=== PATIENT | female | born 1955 | race Caucasian/White ===

== ENCOUNTER 2016-08-11 03:36 | Emergency (ER) | payer OTHER ==
[~2016-08-11] VITALS: Ht 157.5 cm; Wt 80.7 kg
[~2016-08-11 03:36] MED LIST: BROM0.07 OPL; MELO15TA4 PO; PRED1SUS3 OPL; PRLSR20 PO; PROP10TA7 PO; SERT50TA PO
[2016-08-11 03:43] VITALS: TEMP 36.9; Ht 157.5 cm; Wt 80.7 kg
[2016-08-11] MEDS ORDERED: SODIUM CHLORIDE 0.9% 1000ML 1,000 ML IV STA (04:02)
[2016-08-11] MEDS ORDERED: ONDANSETRON INJ 2 MG/ML 2 ML VIAL IV STA (04:02)
[2016-08-11] MEDS ORDERED: FAMOTIDINE 20MG/102 ML D5W IV STA (04:02)
[2016-08-11 04:03] VITALS: O2SAT 98
[2016-08-11] MEDS ORDERED: OMEG10007 PO (04:12)
[2016-08-11] MEDS ORDERED: PROP20TA67 PO (04:13)
[2016-08-11] MEDS ORDERED: SERT-234 PO (04:13)
[2016-08-11 04:23] LABS: BASO % 0.1 %; BASO ABS # 0.01 K/uL (0-0.2); COMPLETE YES; EOS % 1.6 %; HEMATOCRIT 42.6 % (37-47); IG% 0.4 %; LYMPH % 20.3 %; LYMPH ABS # 1.54 K/uL (1.2-3.4); MEAN CELL VOLUME 88.6 fL (80-100); MEAN CORPUSCULAR HEMOGLOBIN 28.3 pg (25-34); MEAN CORPUSCULAR HGB CONC 31.9 g/dl (32-36); MEAN PLATELET VOLUME 10.1 fL (7.4-10.4); MONO % 10.3 %; NEUT % 67.3 %; PLATELET COUNT 209 K/uL (130-400); RED BLOOD COUNT 4.81 M/uL (4.2-5.4)
[2016-08-11 04:42] LABS: BLOOD UREA NITROGEN 12 mg/dl (7-18); BUN/CREATININE RATIO 19.3 (10-20); CALCIUM 8.6 mg/dl (8.5-10.1); CARBON DIOXIDE 28 mmol/L (21-32); CHLORIDE 108 mmol/L (98-107); GLUCOSE 102 mg/dl (70-99); POTASSIUM 3.3 mmol/L (3.5-5.1); SODIUM 142 mmol/L (136-145)
[2016-08-11] MEDS ORDERED: POTASSIUM CHLORIDE 10 MEQ TABCR PO STA (04:44)
[2016-08-11] MEDS ORDERED: ONDANSETRON HOME PACK 4MG OD TAB PO ONE (04:45)
[2016-08-11 05:12] VITALS: BP 158/85; PULSE 65; O2SAT 98
--- NOTE | 2016-08-11 05:27 | EMERGENCY ROOM VISIT NOTE ---
History First contact with patient: 03:56 Chief Complaint: VOMITING Stated Complaint: CAN'T KEEP NOTHING IN ME Nursing Triage Summary: N/V/D since Sunday. Pt states she is unable to keep anything down. History of Present Illness The patient is a 61 year old female who presents to the Emergency Room with complaints of nausea, vomiting, diarrhea, fatigue for the past few days. Patient denies recent antibiotics or well water. Patient denies chest pain, dyspnea, fever, chills, cough, congestion, urinary symptoms, sore throat, headache, neck stiffness, back pain. Patient complains of abdominal bloating and cramping without localized pain. Other people at work have been sick. Review of Systems See HPI for pertinent positives & negatives. A total of 10 systems reviewed and were otherwise negative. Past Medical/Surgical History Hypertension, anxiety, depression Social History Smoking Status: Never Smoker Drug Use: none Marital Status: Housing Status: lives with family Occupation Status: employed Current/Historical Medications Scheduled Fish Oil (Sanford-3), 1 CAP PO DAILY Omeprazole (Prilosec), 20 MG PO QAM Propranolol (Inderal), 20 MG PO BID Sertraline (Zoloft), 100 MG PO DAILY Allergies Coded Allergies: No Known Allergies (Unverified , 08/11/16) Physical Exam Vital Signs Date Time Temp Pulse Resp B/P Pulse Ox O2 Delivery O2 Flow Rate FiO2 08/11/16 05:12 65 18 158/85 98 Room Air 08/11/16 04:21 68 08/11/16 04:03 98 Room Air 08/11/16 03:43 36.9 88 20 138/89 96 Room Air Physical Exam VITALS: Vitals are noted on the nurse's note and reviewed by myself. Vital signs stable. GENERAL: Pleasant female, in no acute distress, nondiaphoretic, well-developed well-nourished. SKIN: The skin was without rashes, erythema, edema, or bruising. There is no tenting of the skin. Capillary reflex less than 2 seconds. HEAD: Normocephalic atraumatic. EARS: External auditory canals clear, tympanic membranes pearly key without erythema or effusion bilaterally. EYES: Pupils equal round and reactive to light and accommodation. Conjunctivae without injection, sclerae without icterus. Extraocular movements intact. NOSE: Patent, turbinates without inflammation or discharge. MOUTH: Mucous membranes mildly dry pharynx without erythema or exudate. Uvula midline. Airway patent. Tongue does not deviate. NECK: Supple without nuchal rigidity. No lymphadenopathy. No thyromegaly. Cervical spine is nontender. No JVD. HEART: Regular rate and rhythm without murmurs gallops or rubs. LUNGS: Clear to auscultation bilaterally without wheezes, rales or rhonchi. No dullness to percussion. No retractions or accessory muscle use. ABDOMEN: Positive bowel sounds x 4. Normal tympanic percussion. Soft, nontender, without masses or organomegaly. Erazo sign negative. No guarding or rebound tenderness. MUSCULOSKELETAL: No muscle atrophy, erythema, or edema noted. NEURO: Patient was alert and oriented to person place and time. Normal sensation to light and sharp touch. No focal neurological deficits. Medical Decision & Procedures Laboratory Results 08/11/16 04:10 Red Blood Count 4.81, Mean Corpuscular Volume 88.6, Mean Corpuscular Hemoglobin 28.3, Mean Corpuscular Hemoglobin Concent 31.9, Mean Platelet Volume 10.1, Neutrophils (%) (Auto) 67.3, Lymphocytes (%) (Auto) 20.3, Monocytes (%) (Auto) 10.3, Eosinophils (%) (Auto) 1.6, Basophils (%) (Auto) 0.1, Neutrophils # (Auto ) 5.12, Lymphocytes # (Auto) 1.54, Monocytes # (Auto) 0.78, Eosinophils # (Auto ) 0.12, Basophils # (Auto) 0.01 08/11/16 04:10 Test 08/11/16 04:10 White Blood Count 7.60 K/uL (4.8-10.8) Red Blood Count 4.81 M/uL (4.2-5.4) Hemoglobin 13.6 g/dL (12.0-16.0) Hematocrit 42.6 % (37-47) Mean Corpuscular Volume 88.6 fL (80-100) Mean Corpuscular Hemoglobin 28.3 pg (25-34) Mean Corpuscular Hemoglobin Concent 31.9 g/dl (32-36) Platelet Count 209 K/uL (130-400) Mean Platelet Volume 10.1 fL (7.4-10.4) Neutrophils (%) (Auto) 67.3 % Lymphocytes (%) (Auto) 20.3 % Monocytes (%) (Auto) 10.3 % Eosinophils (%) (Auto) 1.6 % Basophils (%) (Auto) 0.1 % Neutrophils # (Auto) 5.12 K/uL (1.4-6.5) Lymphocytes # (Auto) 1.54 K/uL (1.2-3.4) Monocytes # (Auto) 0.78 K/uL (0.11-0.59) Eosinophils # (Auto) 0.12 K/uL (0-0.5) Basophils # (Auto) 0.01 K/uL (0-0.2) RDW Standard Deviation 42.3 fL (36.4-46.3) RDW Coefficient of Variation 12.9 % (11.5-14.5) Immature Granulocyte % (Auto) 0.4 % Immature Granulocyte # (Auto) 0.03 K/uL (0.00-0.02) Anion Gap 6.0 mmol/L (3-11) Est Creatinine Clear Calc Drug Dose 96.9 ml/min Estimated GFR () 114.0 Estimated GFR (Non- 98.4 BUN/Creatinine Ratio 19.3 (10-20) Calcium Level 8.6 mg/dl (8.5-10.1) Magnesium Level 2.0 mg/dl (1.8-2.4) Troponin I < 0.015 ng/ml (0-0.045) Medications Administered Medications (Trade) Dose Ordered Sig/Etta Route Start Time Stop Time Status Last Admin Dose Admin Ondansetron HCl 4 mg 4 mg NOW STAT IV 08/11/16 04:02 08/11/16 04:04 DC 08/11/16 04:09 4 MG Sodium Chloride (Nss 1000ml) 1,000 ml @ 999 mls/hr Q1H1M STAT IV 08/11/16 04:02 08/11/16 05:02 DC 08/11/16 04:09 999 MLS/HR Famotidine (Pepcid 20mg/100 ml) 20 mg ONE STAT IV 08/11/16 04:02 08/11/16 04:04 DC 08/11/16 04:09 20 MG Potassium Chloride (Klor-Con M10) 20 meq NOW STAT PO 5/12/17 04:44 08/11/16 04:45 DC 08/11/16 05:10 20 MEQ Ondansetron HCl (ZOFRAN ODT 4MG Home Pack) 1 homepack UD ONCE PO 08/11/16 04:45 08/11/16 04:46 DC 08/11/16 05:10 1 HOMEPACK ED Course Prior records/ancillary studies reviewed. Triage Nursing notes reviewed. Additional history obtained from the family. The patient's history was concerning for nausea, vomiting, diarrhea, and abdominal pain. Differential diagnosis: Etiologies such as gastroenteritis, food borne illness, infections, appendicitis , diverticulitis, inflammatory bowel disease, obstruction, GI bleed, biliary pathology, as well as others were entertained. Physical examination findings: As above. Abdominal examination revealed no tenderness. Vital signs reviewed and revealed stable. ER treatment provided: IV hydration 1 L NSS. Zofran, Pepcid On reassessment the patient felt better. Patient was tolerating p.o. intake. Diagnostics interpretation by me: EKG: Normal sinus, normal intervals, no acute ST-T wave changes. Impression normal sinus rhythm interpreted The labs revealed hypokalemia and this is replaced orally This appears to be consistent with vomiting and diarrhea. Patient was neurovascularly and neurologically intact. She did not have an acute abdomen on exam. She is able to tolerate fluids. Patient is advised to do clear liquid diet today and then progress as tolerated to bland diet tomorrow. She is advised to return to the ER immediately for abdominal pain, fevers, vomiting , worsening signs or symptoms or as needed. She is advised follow-up family care in a few days for reevaluation.. By the evaluation outlined above emergent etiologies such as appendicitis, diverticulitis, obstruction, cardiac sources, mesenteric ischemia, aortic pathology, inflammatory bowel disease, renal colic, PUD, biliary pathology, UTI, as well as others were deemed relatively unlikely. The pt informed about the findings as listed above. All questions were answered and pleased with the treatment. Return instructions were outlined and the patient was discharged in stable condition. Outpatient prescription management: zofran Referral: The patient was referred to their primary care physician for follow-up in 2 to 3 days for a recheck of the current condition. case reviewed with my Attending Medical Decision As above Impression Primary Impression: Nausea, vomiting, and diarrhea Departure Information Dispostion Home / Self-Care Condition GOOD Referrals Azeem Hamilton M.D. (PCP) Patient Instructions My [facility] Additional Instructions DO NOT drive, drink alcohol, operate machinery, or perform dangerous activities today. You were given medications in the ER that can affect your ability to safely function or operate a vehicle. Zofran(odansetron) tablets 4mg: Take one and allow it to dissolve in your mouth every four to six hours as needed for nausea or vomiting. Ibuprofen(Motrin, Advil) may be used for fever or pain. Use 600mg every six hours as needed. Take with food. Avoid using more than 2400mg in a 24 hour period. Do not use 2400mg per day for more than three consecutive days without physician direction. Prolonged inappropriate use can lead to stomach upset or ulcers. (AND/OR) Acetaminophen(Tylenol) may be used for fever or pain. Use 1000mg every six hours as needed. Avoid using more than 3000mg in a 24 hour period. Rest and drink plenty of fluids as tolerated. Slow sips of water or sports drinks are recommended instead of large amounts all at once. Continue current medications. Once your stomach is settled start with a clear liquid diet (jello, soup broth, etc.) and then advance as tolerated. You should avoid full, heavy meals for about 24 hrs from the time your symptoms resolved. Return to the ER for persistent vomiting, fevers, abdominal pain, chest pains, difficulty breathing, black or bloody stools, worsening of your condition, or as needed. Follow up with your primary physician in 2-3 days for a recheck of your current condition.
== END 2016-08-11 05:39 | disposition home or self-care (01) ==
LOC: C.EDB 03:38
DX: R11.2 Nausea with vomiting, unspecified (principal); R19.7 Diarrhea, unspecified; I10 Essential (primary) hypertension; F41.9 Anxiety disorder, unspecified; F32.9 Major depressive disorder, single episode, unspecified; Z79.899 Other long term (current) drug therapy

== ENCOUNTER → 2016-09-14 | Outpatient (CLI) | payer OTHER ==
[~2016-09-14] MED LIST changes: -BROM0.07 OPL; -MELO15TA4 PO; +OMEG10007 PO; -PRED1SUS3 OPL; -PROP10TA7 PO; +PROP20TA67 PO; +SERT-234 PO; -SERT50TA PO
--- NOTE | 2016-09-14 16:12 | MAMMOGRAPHY REPORT ---
BILATERAL DIGITAL SCREENING MAMMOGRAM TOMOSYNTHESIS WITH CAD: 09/14/2016 CLINICAL HISTORY: Routine screening. Patient has no complaints. TECHNIQUE: Breast tomosynthesis in addition to standard 2D mammography was performed. Current study was also evaluated with a Computer Aided Detection (CAD) system. COMPARISON: Comparison is made to exams dated: 09/09/2015 mammogram, 09/03/2014 mammogram, 09/03/2012 mamm ogram, 08/20/2012 mammogram - [facility], 10/16/2007, and 10/16/2007. BREAST COMPOSITION: The tissue of both breasts is heterogeneously dense, which may obscure small mas ses. FINDINGS: No suspicious masses, calcifications, or areas of architectural distortion are noted in ei ther breast. There has been no significant interval change compared to prior exams. A biopsy marker clip is again noted in the left 6:00 breast. Bilateral scattered benign-appearing calcifications are not significantly changed. IMPRESSION: ACR BI-RADS CATEGORY 2: BENIGN There is no mammographic evidence of malignancy. A 1 year screening mammogram is recommended. The pa tient will receive written notification of the results. Approximately 10% of breast cancers are not detected with mammography. A negative mammographic report should not delay biopsy if a clinically suggestive mass is present. Mabel Moya M.D. /:09/14/2016 15:34:27 Panel Machine Operator: Maya GARCIA)(Ya)(BD), [facility] letter sent: Normal 1/2 BI-RADS Code: ACR BI-RADS Category 2: Benign
== END | disposition home or self-care (01) ==
LOC: C.MAMM 10:20
PROVIDERS: ATTEND Family Medicine
DX: Z12.31 Encounter for screening mammogram for malignant neoplasm of breast (principal)